=== PATIENT | male | born 1985 | race Two or more races ===

== ENCOUNTER 2019-03-18 04:38 | Emergency (ER) | payer OTHER ==
[~2019-03-18] VITALS: Ht 180.3 cm; Wt 65.8 kg
[2019-03-18 04:44] VITALS: BP 117/84
== END 2019-03-18 04:58 | disposition home or self-care (01) ==
LOC: ER 04:43
DX: R10.84 Generalized abdominal pain (principal); R19.7 Diarrhea, unspecified; F41.9 Anxiety disorder, unspecified; Z88.8 Allergy status to other drugs, medicaments and biological substances; Z60.2 Problems related to living alone